=== PATIENT | female | born 1955 | race Caucasian/White ===

== ENCOUNTER 2017-03-01 15:46 | Emergency (ER) | payer OTHER ==
--- NOTE | 2017-03-01 16:36 | UC ---
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 Negative: Nausea, Vomiting, Diaphoresis, Tinnitus, Chest Pain, SOB, Palpitations , Decreased Oral Intake, Change In Medication, Change In Diet - Allergies/Home Medications Allergies/Adverse Reactions: Allergies Allergy/AdvReac Type Severity Reaction Status Date / Time No Known Allergies Allergy Verified 03/01/17 15:56 Home Medications: Home Medications Amitriptyline TAB* [Elavil TAB*] 100 mg PO BEDTIME 03/01/17 [History Confirmed 03/01/17] Gabapentin CAP(*) [Neurontin 100 mg CAP(*)] 100 mg PO TID 03/01/17 [History Confirmed 03/01/17] Interferon Beta 1a (NF) [Rebif (NF)] 44 mcg SUBCUT WEEKLY 03/01/17 [History Confirmed 03/01/17] Meloxicam [Mobic] 15 mg PO DAILY 03/01/17 [History Confirmed 03/01/17] Tizanidine HCl 0.5 - 1 tab PO TID 03/01/17 [History Confirmed 03/01/17] PMH/Surg Hx/FS Hx/Imm Hx Previously Healthy: No - MS - Surgical History Surgical History: Yes Surgery Procedure, Year, and Place: 2003 RT KNEE REPLACEMENT THEN [facility] 08/2014 ;. C-SECTIONS ; - Family History Known Family History: Positive: Hypertension Negative: Diabetes - Social History Alcohol Use: None Substance Use Type: None Smoking Status (MU): Never Smoked Tobacco Review of Systems Constitutional: Fatigue Skin: Negative Eyes: Negative ENT: Negative Respiratory: Negative Cardiovascular: Negative Gastrointestinal: Negative Genitourinary: Negative Motor: Weakness Neurovascular: Negative Musculoskeletal: Negative Neurological: Negative Psychological: Negative Is Patient Immunocompromised?: No All Other Systems Reviewed And Are Negative: Yes Physical Exam Triage Information Reviewed: Yes Appearance: Well-Appearing, No Pain Distress, Well-Nourished Vital Signs: Initial Vital Signs Temp 98.7 F 03/01/17 16:00 Pulse 83 03/01/17 16:00 Resp 18 03/01/17 16:00 BP 175/93 03/01/17 16:00 Pulse Ox 95 03/01/17 16:00 Vital Signs Reviewed: Yes Eyes: Positive: Conjunctiva Clear, Other: - EOMI/PERRL ENT: Positive: Hearing grossly normal. Negative: Nasal congestion, Nasal drainage, Trismus, Muffled/hoarse voice Neck: Positive: Supple, Nontender, No Lymphadenopathy Respiratory: Positive: Lungs clear, Normal breath sounds, No respiratory distress, No accessory muscle use Cardiovascular: Positive: RRR, No Murmur Musculoskeletal: Positive: No Edema Neurological: Positive: Alert, Other: - HYPERREFEXIA Psychological Exam: Normal Diagnostics - EKG Cardiac Rate: NL Cardiac Rhythm: Sinus: Normal Ectopy: None ST Segment: Non-Specific - 1.5mm ST elevation in V2 Dizzy Course/Dx - Course Course Of Treatment: urine dip trace leuks. FS-. d/w Dr. Brasher. accepted at [facility]. declines EMS transfer and AMA signed for this reason - Differential Dx/Diagnosis Provider Diagnoses: mental status changes Discharge - Discharge Plan Condition: Guarded Disposition: [facility] Referrals: Robby Snow MD [Primary Care Provider] -
[2017-03-01 16:59] VITALS: BP 180/106
== END 2017-03-01 17:17 | disposition short-term general hospital (02) ==
LOC: UCCORT 15:46
DX: R41.82 Altered mental status, unspecified (principal); R26.81 Unsteadiness on feet; R53.83 Other fatigue; Z96.651 Presence of right artificial knee joint
CPT/HCPCS: 81003; 87086; 93005; 99212; G0463